=== PATIENT | female | born 1995 | race Caucasian/White ===

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

== ENCOUNTER 2017-03-07 13:35 | Emergency (ER) | payer OTHER ==
[2017-03-07 13:56] VITALS: BMI 23.0
[2017-03-07] MEDS ORDERED: SODIUM CHLORIDE 1,000 ML IV STA (14:20)
[2017-03-07] MEDS ORDERED: FAMOTIDINE 20 MG/50 ML IVPB 50 ML IVPB ONE ×2 (14:20→14:34)
[2017-03-07 14:35] LABS: BASOPHIL 0.5 % (0-2.0); EOSINOPHIL 1.2 % (0-4.5); MCH 31.2 pg (25.7-33.7); MCHC 34.5 g/dl (32.0-36.0); MEAN CELL VOLUME 90.5 fl (80-96); MEAN PLT VOLUME 7.7 fl (7.5-11.1); NEUTROPHILS 75.3 % (42.8-82.8); PLATELET COUNT 172 K/MM3 (134-434); RDW 14.5 % (11.6-15.6); WHITE BLOOD COUNT 10.3 K/mm3 (4.0-10.0)
[2017-03-07 14:47] LABS: URINE APPEARANCE CLEAR; URINE BILIRUBIN NEGATIVE (NEGATIVE); URINE BLOOD NEGATIVE (NEGATIVE); URINE COLOR STRAW; URINE GLUCOSE (UA) NEGATIVE (NEGATIVE); URINE KETONE NEGATIVE (NEGATIVE); URINE LEUK ESTERASE NEGATIVE (NEGATIVE); URINE NITRITE NEGATIVE (NEGATIVE); URINE PROTEIN NEGATIVE (NEGATIVE); URINE UROBILINOGEN NEGATIVE mg/dL (0.2-1.0)
[2017-03-07 14:54] LABS: ALBUMIN 3.5 g/dl (3.4-5.0); ANION GAP 8 (8-16); BILIRUBIN,TOTAL 0.2 mg/dL (0.2-1.0); CO2 25 mmol/L (21-32); CREATININE 0.6 mg/dL (0.55-1.02); GLUCOSE,RANDOM 87 mg/dL (74-106); SGOT/AST 17 U/L (15-37); SGPT/ALT 23 U/L (12-78); TOT PROT 7.1 g/dl (6.4-8.2)
[2017-03-07 14:59] LABS: ALK PHOS 54 U/L (45-117)
--- NOTE | 2017-03-07 15:53 | PDOC ---
History of Present Illness - General History Source: Patient Exam Limitations: No Limitations <Henrik London - Last Filed: 03/07/17 16:26> - General History Source: Patient Exam Limitations: No Limitations - History of Present Illness Initial Comments: 03/07/17 16:46 21-year-old female with no past medical history, , approximately 7 weeks presents with generalized abdominal pain since she was . Patient reports that she be feeling this discomfort throughout her whole abdomen since she was . Patient denies any nausea, vomiting, diarrhea, vaginal bleeding. Denies dysuria. Patient wanted to get checked and came into the ED. <Jory Kruse - Last Filed: 03/07/17 16:47> - General Chief Complaint: Pain Stated Complaint: ABD PAIN (5 WKS ) Time Seen by Provider: 03/07/17 14:02 Past History - Past Medical History Other medical history: NONE - Surgical History Abdominal Surgery: Yes Appendectomy: Yes - Reproductive History Is Patient Now?: Yes (#): 1 Para: 0 Cervical CA: No Dysfunctional Uterine Bleeding: No Ectopic : No Endometrial CA: No Polycystic Ovaries: No Therapeutic (s) & number: No Tubal Ligation: No - Immunization History Immunization Up to Date: Yes - Psycho/Social/Smoking Cessation Hx Anxiety: No Suicidal Ideation: No Smoking Status: No Smoking History: Never smoked Number of Cigarettes Smoked Daily: 0 Cigars Per Day: 0 Hx Alcohol Use: No Drug/Substance Use Hx: No Substance Use Type: None <Henrik London - Last Filed: 03/07/17 16:26> <Jory Kruse - Last Filed: 03/07/17 16:47> - Past Medical History Allergies/Adverse Reactions: Allergies Allergy/AdvReac Type Severity Reaction Status Date / Time No Known Allergies Allergy Verified 03/07/17 13:56 Home Medications: Ambulatory Orders Famotidine [Pepcid] 20 mg PO BID #14 tablet 03/07/17 Vits #93/Iron Fum/FA [ Formula Tablet] 1 each PO DAILY Review of Systems - Review of Systems Able to Perform ROS?: Yes Comments:: 03/07/17 16:46 GENERAL/CONSTITUTIONAL: No fever or chills. No weakness. HEAD, EYES, EARS, NOSE AND THROAT: No change in vision. No ear pain or discharge. No sore throat. CARDIOVASCULAR: No chest pain or shortness of breath. RESPIRATORY: No cough, wheezing, or hemoptysis. GASTROINTESTINAL: +Generalized abdominal pain. No nausea, vomiting, diarrhea or constipation. GENITOURINARY: No dysuria, frequency, or change in urination. MUSCULOSKELETAL: No joint or muscle swelling or pain. No neck or back pain. SKIN: No rash NEUROLOGIC: No headache, vertigo, loss of consciousness, or change in strength/ sensation. ENDOCRINE: No increased thirst. No abnormal weight change. HEMATOLOGIC/LYMPHATIC: No anemia, easy bleeding, or history of blood clots. ALLERGIC/IMMUNOLOGIC: No hives or skin allergy. <Jory Kruse - Last Filed: 03/07/17 16:47> *Physical Exam - Vital Signs Last Vital Signs Temp Pulse Resp BP Pulse Ox 98.3 F 73 20 93/52 98 03/07/17 13:52 03/07/17 13:52 03/07/17 13:52 03/07/17 13:52 03/07/17 13:52 <Henrik London - Last Filed: 03/07/17 16:26> - Vital Signs Last Vital Signs Temp Pulse Resp BP Pulse Ox 98.3 F 73 20 93/52 98 03/07/17 13:52 03/07/17 13:52 03/07/17 13:52 03/07/17 13:52 03/07/17 13:52 - Physical Exam Comments: 03/07/17 16:46 GENERAL: Awake, alert, and fully oriented, in no acute distress HEAD: No signs of trauma EYES: PERRLA, EOMI, sclera anicteric, conjunctiva clear ENT: Auricles normal inspection, hearing grossly normal, nares patent, oropharynx clear without exudates. Moist mucosa NECK: Normal ROM, supple, no lymphadenopathy, JVD, or masses LUNGS: Breath sounds equal, clear to auscultation bilaterally. No wheezes, and no crackles HEART: Regular rate and rhythm, normal S1 and S2, no murmurs, rubs or gallops ABDOMEN: Soft, nontender, normoactive bowel sounds. No guarding, no rebound. No masses EXTREMITIES: Normal range of motion, no edema. No clubbing or cyanosis. No cords, erythema, or tendernessw NEUROLOGICAL: Cranial nerves II through XII grossly intact. Normal speech, normal gait SKIN: Warm, Dry, normal turgor, no rashes or lesions noted. <Jory Kruse - Last Filed: 03/07/17 16:47> ED Treatment Course - LABORATORY CBC & Chemistry Diagram: 03/07/17 14:12 03/07/17 14:12 - ADDITIONAL ORDERS Additional order review: Laboratory Results 03/07/17 03/07/17 03/07/17 14:12 14:12 14:12 Sodium 136 Potassium 3.9 Chloride 103 Carbon Dioxide 25 Anion Gap 8 BUN 11 Creatinine 0.6 D Creat Clearance w eGFR > 60 Random Glucose 87 Calcium 9.0 Total Bilirubin 0.2 D AST 17 D ALT 23 Alkaline Phosphatase 54 Total Protein 7.1 Albumin 3.5 Lipase 137 Beta HCG, Quant 50213.7 Urine Color Straw Urine Appearance Clear Urine pH 6.0 Urine Protein Negative Urine Glucose (UA) Negative Urine Ketones Negative Urine Blood Negative Urine Nitrite Negative Urine Bilirubin Negative Urine Urobilinogen Negative Ur Leukocyte Esterase Negative Blood Type O POSITIVE Antibody Screen Negative 03/07/17 14:12 RBC 4.13 MCV 90.5 MCHC 34.5 RDW 14.5 MPV 7.7 Neutrophils % 75.3 Lymphocytes % 14.6 D Monocytes % 8.4 Eosinophils % 1.2 D Basophils % 0.5 - RADIOLOGY Radiology Studies Ordered: Category Date Time Status <14WKS US [US] Stat Ultrasound 03/07/17 14:20 Completed - Medications Given in the ED: ED Medications Discontinued Medications Generic Name Dose Route Start Last Admin Trade Name Nicolette PRN Reason Stop Dose Admin Famotidine/Sodium Chloride 50 mls @ 100 mls/hr 03/07/17 14:20 03/07/17 14:40 Pepcid 20 Mg Premixed Ivpb - IVPB 03/07/17 14:49 100 mls/hr ONCE ONE Administration Sodium Chloride 1,000 mls @ 1,000 mls/hr 03/07/17 14:20 03/07/17 14:39 Normal Saline - IV 03/07/17 15:19 1,000 mls/hr ASDIR STA Administration <Henrik London - Last Filed: 03/07/17 16:26> - LABORATORY CBC & Chemistry Diagram: 03/07/17 14:12 03/07/17 14:12 - ADDITIONAL ORDERS Additional order review: Laboratory Results 03/07/17 03/07/17 03/07/17 14:12 14:12 14:12 Sodium 136 Potassium 3.9 Chloride 103 Carbon Dioxide 25 Anion Gap 8 BUN 11 Creatinine 0.6 D Creat Clearance w eGFR > 60 Random Glucose 87 Calcium 9.0 Total Bilirubin 0.2 D AST 17 D ALT 23 Alkaline Phosphatase 54 Total Protein 7.1 Albumin 3.5 Lipase 137 Beta HCG, Quant 09232.7 Urine Color Straw Urine Appearance Clear Urine pH 6.0 Urine Protein Negative Urine Glucose (UA) Negative Urine Ketones Negative Urine Blood Negative Urine Nitrite Negative Urine Bilirubin Negative Urine Urobilinogen Negative Ur Leukocyte Esterase Negative Blood Type O POSITIVE Antibody Screen Negative 03/07/17 14:12 RBC 4.13 MCV 90.5 MCHC 34.5 RDW 14.5 MPV 7.7 Neutrophils % 75.3 Lymphocytes % 14.6 D Monocytes % 8.4 Eosinophils % 1.2 D Basophils % 0.5 - Medications Given in the ED: ED Medications Discontinued Medications Generic Name Dose Route Start Last Admin Trade Name Nicolette PRN Reason Stop Dose Admin Famotidine/Sodium Chloride 50 mls @ 100 mls/hr 03/07/17 14:20 03/07/17 14:40 Pepcid 20 Mg Premixed Ivpb - IVPB 03/07/17 14:49 100 mls/hr ONCE ONE Administration Sodium Chloride 1,000 mls @ 1,000 mls/hr 03/07/17 14:20 03/07/17 14:39 Normal Saline - IV 03/07/17 15:19 1,000 mls/hr ASDIR STA Administration <Jory Kruse - Last Filed: 03/07/17 16:47> Medical Decision Making - Medical Decision Making 03/07/17 15:46 A portion of this note was documented by scribe services under my direction. I have reviewed the details of the note, within reason, and agree with the documentation with the following case summary and management plan written by me. Patient treated in the ED. Nursing notes are reviewed and incorporated into the medical decision-making. Vital signs reviewed. Peripheral IV access obtained by the nurse, laboratory studies are drawn and sent, reviewed and interpreted by myself. Vital Signs Temp Pulse Resp BP Pulse Ox 98.3 F 73 20 93/52 98 03/07/17 13:52 03/07/17 13:52 03/07/17 13:52 03/07/17 13:52 03/07/17 13:52 21-year-old female with no past medical history, , approximately 7 weeks presents with generalized abdominal pain since she was . Patient reports that she be feeling this discomfort throughout her whole abdomen since she was . Patient denies any nausea, vomiting, diarrhea, vaginal bleeding. Denies dysuria. Patient wanted to get checked and came into the ED. I do not suspect or miscarriage at this time. I suspect the patient is likely more concerned and anxious about her than acute pathology at this time. Patient's ultrasound was checked and demonstrates a normal intrauterine and her blood work was checked for other acute abdominal pathology which demonstrates no acute symptoms. We'll give reassurance have patient follow up with her doctor. CBC, BMP 03/07/17 14:12 03/07/17 14:12 CMP Sodium 136 mmol/L (136-145) 03/07/17 14:12 Potassium 3.9 mmol/L (3.5-5.1) 03/07/17 14:12 Chloride 103 mmol/L (98-107) 03/07/17 14:12 Carbon Dioxide 25 mmol/L (21-32) 03/07/17 14:12 Anion Gap 8 (8-16) 03/07/17 14:12 BUN 11 mg/dL (7-18) 03/07/17 14:12 Creatinine 0.6 mg/dL (0.55-1.02) D 03/07/17 14:12 Creat Clearance w eGFR > 60 (>60) 03/07/17 14:12 Random Glucose 87 mg/dL (74-106) 03/07/17 14:12 Calcium 9.0 mg/dL (8.5-10.1) 03/07/17 14:12 Total Bilirubin 0.2 mg/dL (0.2-1.0) D 03/07/17 14:12 AST 17 U/L (15-37) D 03/07/17 14:12 ALT 23 U/L (12-78) 03/07/17 14:12 Alkaline Phosphatase 54 U/L (45-117) 03/07/17 14:12 Total Protein 7.1 g/dl (6.4-8.2) 03/07/17 14:12 Albumin 3.5 g/dl (3.4-5.0) 03/07/17 14:12 Lipase 137 U/L (73-393) 03/07/17 14:12 Beta HCG, Quant 11822.7 mIU/ml 03/07/17 14:12 Urine Test Results Urine Color Straw 03/07/17 14:12 Urine Appearance Clear 03/07/17 14:12 Urine pH 6.0 (5.0-8.0) 03/07/17 14:12 Urine Protein Negative (NEGATIVE) 03/07/17 14:12 Urine Glucose (UA) Negative (NEGATIVE) 03/07/17 14:12 Urine Ketones Negative (NEGATIVE) 03/07/17 14:12 Urine Blood Negative (NEGATIVE) 03/07/17 14:12 Urine Nitrite Negative (NEGATIVE) 03/07/17 14:12 Urine Bilirubin Negative (NEGATIVE) 03/07/17 14:12 Ur Leukocyte Esterase Negative (NEGATIVE) 03/07/17 14:12 I discussed the physical exam findings, ancillary test results and final diagnoses with the patient. I answered all of the patient's questions. The patient was satisfied with the care received and felt comfortable with the discharge plan and treatment plan. The patient will call their primary care physician within 24 hours to arrange follow-up and will return to the Emergency Department with any new, persistant or worsening symptoms. <Henrik London - Last Filed: 03/07/17 16:26> *DC/Admit/Observation/Transfer - Discharge Dispostion Admit: No <Henrik London - Last Filed: 03/07/17 16:26> - Attestations Scribe Attestion: 03/07/17 16:47 Documentation prepared by Jory Kruse, acting as medical representative for Henrik London MD <Jory Kruse - Last Filed: 03/07/17 16:47> Diagnosis at time of Disposition: Qualifiers: Weeks of gestation: 8 weeks Qualified Code(s): Z3A.08 - 8 weeks gestation of - Prescriptions Prescriptions: Famotidine [Pepcid] 20 mg PO BID #14 tablet - Referrals Referrals: Alley Carbajal [Primary Care Provider] - - Patient Instructions Printed Discharge Instructions: DI for Gastroesophageal Reflux Disease (GERD) Additional Instructions: Please follow up with your doctor. Drink plenty of fluids and rest. Take 650 mg tylenol every 4 hours as needed for pain. If you hvae acid reflux, take 20 mg pepcid every 12 hours as needed. Follow up with your leasing representative doctor.
[2017-03-07 16:57] VITALS: BP 114/71; PULSE 79; TEMP 98.1
== END 2017-03-07 16:55 | disposition home or self-care (01) ==
LOC: JER 13:35
PROC: 3E033GC Introduction of Other Therapeutic Substance into Peripheral Vein, Percutaneous Approach (ICD-10-PCS; principal; 2017-03-07)
DX: O26.891 Other specified pregnancy related conditions, first trimester (principal); R10.30 Lower abdominal pain, unspecified; Z3A.08 8 weeks gestation of pregnancy
CPT/HCPCS: 36415; 76801-TC; 80053; 81003; 83690; 84702; 85025; 86850; 86900; 86901; 87086; 96365; 99284-25

== ENCOUNTER 2017-09-20 23:50 | Inpatient (IN) | payer OTHER ==
[2017-09-21] MEDS ORDERED: DEXTROSE 5%-LACTATED RINGERS 1,000 ML IV SCH (00:30)
[2017-09-21] MEDS ORDERED: AMPICILLIN SODIUM 2 GM VIAL ONE (00:33)
[2017-09-21] MEDS ORDERED: AMPICILLIN - 2 GM in SODIUM CHLORIDE 100 ML IVPB ONE (00:35)
[2017-09-21] MEDS ORDERED: BUTORPHANOL TARTRATE 1 MG/ML VIAL IVPUSH ONE (00:45)
[2017-09-21] MEDS ORDERED: PROMETHAZINE HCL 25 MG/1 ML VIAL IVPUSH ONE (00:45)
[2017-09-21] MEDS ORDERED: BUTORPHANOL TARTRATE 1 MG/ML VIAL ONE ×2 (00:48)
[2017-09-21] MEDS ORDERED: PROMETHAZINE HCL 25 MG/1 ML VIAL ONE (00:48)
[2017-09-21 00:54] LABS: BASO % 0.2 % (0-2.0); EOS % 1.1 % (0-4.5); HEMATOCRIT 30.4 % (32.4-45.2); LYMPH % 12.2 % (8-40); MCH 26.6 pg (25.7-33.7); MCHC 32.7 g/dl (32.0-36.0); MEAN CELL VOLUME 81.5 fl (80-96); MEAN PLT VOLUME 8.6 fl (7.5-11.1); MONO % 6.8 % (3.8-10.2); NEUT % 79.7 % (42.8-82.8); PLATELET COUNT 182 K/MM3 (134-434); RBC 3.73 M/mm3 (3.60-5.2); RDW 15.2 % (11.6-15.6); WHITE BLOOD COUNT 10.8 K/mm3 (4.0-10.0)
[2017-09-21 01:10] LABS: INR 0.97 (0.82-1.09)
[2017-09-21 01:12] LABS: ACTIVATED PTT 26.7 SECONDS (26.9-34.4)
[2017-09-21 01:22] LABS: ANION GAP 12 (8-16); BLOOD UREA NITROGEN 9 mg/dL (7-18); CALCIUM 8.8 mg/dL (8.5-10.1); CHLORIDE 104 mmol/L (98-107); CO2 21 mmol/L (21-32); CREATININE 0.5 mg/dL (0.55-1.02); GLUCOSE,RANDOM 136 mg/dL (74-106); POTASSIUM 3.7 mmol/L (3.5-5.1); SODIUM 137 mmol/L (136-145)
[2017-09-21 02:11] VITALS: BMI 28.3
[2017-09-21] MEDS ORDERED: AMPICILLIN SODIUM 1 GM VIAL ONE ×3 (04:29→15:43)
[2017-09-21] MEDS: AMPICILLIN - 1 GM in SODIUM CHLORIDE 100 ML IVPB SCH ×5 (04:35→22:58)
[2017-09-21] MEDS: ELECTROLYTE-148 SOLN 1,000 ML IV SCH ×2 (04:45→11:57)
[2017-09-21] MEDS ORDERED: FENTANYL/BUPIVACAINE/NS/PF - PCEA - 50 ML DISP.SYRIN EP ONE ×3 (04:52→15:05)
[2017-09-21] MEDS ORDERED: NALOXONE HCL 0.4 MG/ML VIAL IVPUSH PRN (04:55)
[2017-09-21] MEDS: FENTANYL/BUPIVACAINE/NS/PF - PCEA - 50 ML DISP.SYRIN EP SCH (05:15)
--- NOTE | 2017-09-21 07:13 | HP ---
Past Medical History - Primary Care Physician PCP:: Fabiana Heller - Admission Chief Complaint: labor History of Present Illness: 22 yo EDC 10/21 EGA 35.3 week admitted due to labor no rom no bleeding no TLOEDO GBS neg +anemia +asthma - Past Medical History Pulmonary: Yes: Asthma ...: 1 ...Para: 0 ...Term: 0 ...: 0 ...Spon : 0 ...Induced : 0 ...Multiple Gestation: 0 ...EDC by Sono: 10/21/17 Heme/Onc: Yes: Anemia - Past Surgical History Past Surgical History: Yes: Appendectomy Hx Myomectomy: No Hx Transabdominal Cerclage: No - Smoking History Smoking history: Never smoked Have you smoked in the past 12 months: No Aproximately how many cigarettes per day: 0 - Alcohol/Substance Use Hx Alcohol Use: No History of Substance Use: reports: None - Social History History of Recent Travel: No Home Medications - Allergies Allergies/Adverse Reactions: Allergies Allergy/AdvReac Type Severity Reaction Status Date / Time No Known Allergies Allergy Verified 03/07/17 13:56 - Home Medications Home Medications: Ambulatory Orders Albuterol Sulfate Inhaler - 1 - 2 puff PO PRN PRN 09/21/17 Pnv 112/Iron/Folic/Om3/Dha/Epa [Vitafol Gummies] 2 tablet PO DAILY 09/21/17 Physical Exam - Maternity Vital Signs: Vital Signs Temperature 98.0 F 09/21/17 06:00 Pulse Rate 82 09/21/17 06:15 Respiratory Rate 18 09/21/17 06:15 Blood Pressure 103/66 09/21/17 06:15 O2 Sat by Pulse Oximetry (%) 98 09/21/17 06:15 Constitutional: Yes: Well Nourished, No Distress Neck: Yes: WNL Cardiovascular: Yes: WNL, Regular Rate and Rhythm Lungs: Clear to auscultation Breast(s): Yes: WNL - Abdominal Exam/OB Fundal Height: 35 Number of Fetuses: Single Presentation: Vertex Contractions: Yes Regularity: Regular Intensity: Moderate Category: I Accelerations: Non-Uniform Decelerations: None - Vaginal Exam/OB Dilatation (cm): 5 Effacement (%): 70 Amniotic Membrane Status: Bulging Presentation: Vertex/Position Station: -1 - Physical Exam Musculoskeletal: Yes: WNL Extremities: Yes: WNL Edema: No - Labs Lab Results: CBC, BMP 09/21/17 00:30 09/21/17 00:30 Hemorrhage Risk Assessment - Risk Factors Risk Score: 1 Risk Level: Medium Risk Problem List - Problems (1) labor in third trimester without delivery Code(s): O60.03 - LABOR WITHOUT DELIVERY, THIRD TRIMESTER Assessment/Plan IUP at 35.3 week labor GBS neg S/P epidural Plan amp due to
[2017-09-21] MEDS ORDERED: TUBERCULIN PPD 5 TU/0.1ML SYRINGE (IN PATIENT USE ONLY) ID ONE (09:00)
[2017-09-21] MEDS ORDERED: ELECTROLYTE-148 SOLN 1,000 ML IV SCH (09:30)
--- NOTE | 2017-09-21 14:48 | PN ---
Progress Note (short form) - Note Progress Note: 22 yo @ 35 weeks gestation, EDC 10/21/17 admitted for labor pain. Patient seen and evaluated, she's lying comfortably in bed; status post epidural anesthesia. FHR : occasional late decelerations [place] : + contractions VE : 6/90% / -1 AROM ( clear ) Internal monitor placed A/P : Active labor Continue close monitoring Anticipate
[2017-09-21] MEDS ORDERED: ACETAMINOPHEN 325 MG TABLET (FP) ONE (15:05)
[2017-09-21] MEDS ORDERED: ACETAMINOPHEN 325 MG TABLET (FP) PO ONE (15:15)
[2017-09-21] MEDS ORDERED: OXYTOCIN 20 UNITS in 0.9% NS 20 UNIT/1,000 ML INFUS.BAG IV ONE (15:41)
[2017-09-21] MEDS ORDERED: LIDOCAINE HCL 1% PRESERVATIVE FREE - 30ML VIAL ONE (17:41)
[2017-09-21] MEDS ORDERED: BENZOCAINE 28 GM HEMORRHOIDAL OINTMENT TP PRN (18:04)
[2017-09-21] MEDS ORDERED: IBUPROFEN 600 MG TABLET (FP) PO PRN (18:04)
[2017-09-21] MEDS ORDERED: ACETAMINOPHEN 325 MG TABLET (FP) PO PRN (18:04)
[2017-09-21] MEDS ORDERED: WITCH HAZEL 50% (TUCKS) 40 PAD/JAR PAD TP PRN (18:04)
[2017-09-21] MEDS ORDERED: METHYLERGONOVINE MALEATE 0.2 MG/1 ML AMP IM PRN (18:04)
[2017-09-21] MEDS ORDERED: BISACODYL 10 MG SUPP.RECT RC PRN (18:04)
--- NOTE | 2017-09-21 18:09 | PN ---
Delivery - Delivery Vaginal Delivery: Spontaneous Type of Anesthesia: Epidural Episiotomy/Laceration: Midline EBL (cc): 300 Delivery, Single - Feeding Plan Initial Plan: Exclusive throughout hospitalization Remarks - Remarks Remarks: Normal spontaneous vaginal delivery of a over midline episiotomy. Nose / Oropharynx suctioned @ perineum. Nuchal cord x 1 clamped and cut. Placenta expelled spontaneously intact. Midline episiotomy repaired with 2.0 Chromic.
[2017-09-21] MEDS ORDERED: OXYTOCIN 20 UNITS in 0.9% NS 20 UNIT/1,000 ML INFUS.BAG IV SCH (18:15)
[2017-09-22] MEDS: AMPICILLIN - 1 GM in SODIUM CHLORIDE 100 ML IVPB SCH (00:35)
[2017-09-22 07:13] LABS: BASO % 0.2 % (0-2.0); EOS % 0.3 % (0-4.5); HEMATOCRIT 26.6 % (32.4-45.2); HEMOGLOBIN 8.6 GM/dL (10.7-15.3); LYMPH % 9.3 % (8-40); MCH 26.1 pg (25.7-33.7); MCHC 32.3 g/dl (32.0-36.0); MEAN CELL VOLUME 80.8 fl (80-96); MEAN PLT VOLUME 8.5 fl (7.5-11.1); MONO % 6.8 % (3.8-10.2); NEUT % 83.4 % (42.8-82.8); PLATELET COUNT 161 K/MM3 (134-434); RBC 3.29 M/mm3 (3.60-5.2); RDW 15.3 % (11.6-15.6); WHITE BLOOD COUNT 14.6 K/mm3 (4.0-10.0)
[2017-09-22] MEDS: FERROUS SO4 325 MG TABLET (FP) PO SCH ×3 (09:46→18:58)
[2017-09-22] MEDS: PRENATAL VITAMINS W/ FOLIC ACID TABLET (FP) PO SCH (09:46)
[2017-09-22] MEDS: BENZOCAINE 20% 57 GM BOTTLE TP PRN (09:53)
[2017-09-22] MEDS ORDERED: SENNOSIDES/DOCUSATE COMBO (SENNA PLUS) TABLET (UD) PO PRN (22:00)
--- NOTE | 2017-09-23 07:00 | PN ---
Post Note - Post Date of Delivery: 09/21/17 Post Day: 2 Vital Signs: Vital Signs - 24 hr 09/22/17 09/22/17 09/22/17 09:00 13:00 22:00 Temperature 99.4 F 98.7 F 97.9 F Pulse Rate 100 H 73 87 Respiratory 20 20 20 Rate Blood Pressure 107/65 116/76 114/74 Labs: Laboratory Results - last 24 hr 09/22/17 06:44 WBC 14.6 H D RBC 3.29 L Hgb 8.6 L D Hct 26.6 L MCV 80.8 MCH 26.1 MCHC 32.3 RDW 15.3 Plt Count 161 MPV 8.5 Neutrophils % 83.4 H Lymphocytes % 9.3 D Monocytes % 6.8 Eosinophils % 0.3 Basophils % 0.2 - Subjective Subjective: No Complaints - Objective Breast: Not engorged Abdomen: Soft, Non-tender Uterus: Fundus firm, Non-tender Vagina: Scant lochia Extremities: Non-tender - Assessment/Plan (1) labor in third trimester without delivery Assessment: S/P Normal , Other (anemia) Plan: Routine Care, Other (iron BID motrin)
--- NOTE | 2017-09-23 07:02 | DS ---
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[employer] Vital Signs: Vital Signs Temperature 97.9 F 09/22/17 22:00 Pulse Rate 87 09/22/17 22:00 Respiratory Rate 20 09/22/17 22:00 Blood Pressure 114/74 09/22/17 22:00 O2 Sat by Pulse Oximetry (%) 100 09/21/17 18:45 Constitutional: Yes: Well Nourished, No Distress ....Post : Yes: Uterus firm, Uterus non-tender Breast(s): Yes: WNL Musculoskeletal: Yes: WNL Edema: No Labs: CBC, BMP 09/22/17 06:44 09/21/17 00:30 Delivery - Delivery Vaginal Delivery: Spontaneous Type of Anesthesia: Local, Epidural Episiotomy/Laceration: Midline EBL (cc): 300 Delivery, Single - Stages of Labor Date 1st Stage Initiatied: 09/20/17 Time 1st Stage Initiated: 22:30 Date 2nd Stage Initiated: 09/21/17 Time 2nd Stage Initiated: 17:30 Date of Delivery: 09/21/17 Time of Delivery: 17:44 Time Placenta Delivered: 17:46 - Condition of 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 Present: Yes Name: Alexandr Perez Infant Gender: Male Weight: 5 lb 15 oz Position: Left, OT Total Hours ROM (Hrs/Mins): 3hrs 11min - 1 Minute Total Score: 6 5 Minutes Total Score: 8 - Feeding Plan Initial Plan: Exclusive throughout hospitalization Discharge Summary Reason For Visit: LABOR ADMIT Current Active Problems labor in third trimester without delivery (Acute) Procedures: Principal: normal vaginal delivery Condition: Good - Instructions Diet, Activity, Other Instructions: Physical activity Resume your normal everyday activity as tolerated no heavy lifting or exercise until seen by your surgeon. You may walk unlimited divya of and climb stairs. You may resume driving the car when you feel safe and comfortable behind the wheel. No sexual activity as instructed. Wound care If you have a bandage, leave it on, and keep dry for 48-72 hours. After that time discard the outer bandage. If they are tapes on the skin under the out of bandage leave them in place. They will peel off in the next 7 to 10 days. Do Not Peel them off. You may shower the day after surgery. If there are tapes present on the skin, you may shower over them. Diet There are no dietary restrictions. Eat healthy, high-fiber foods. Drink 6 to 8 glasses of liquid each day. This will assist in keeping your bowels are regular. Pain management You may take Tylenol or acetaminophen or Ibuprofen (for example, Motrin, Advil etc.) from my pain prescription medication is ordered should be taken as prescribed for moderate to severe pain. Call MD for any of the following: Severe pain not relieved by medication Fever of 101 or higher Excessive bleeding or drainage on dressing Inability to urinate Disposition: HOME - Home Medications Comprehensive Discharge Medication List: Ambulatory Orders Albuterol Sulfate Inhaler - 1 - 2 puff PO PRN PRN 09/21/17 Pnv 112/Iron/Folic/Om3/Dha/Epa [Vitafol Gummies] 2 tablet PO DAILY 09/21/17
[2017-09-23] MEDS: FENTANYL/BUPIVACAINE/NS/PF - PCEA - 50 ML DISP.SYRIN EP SCH (07:38)
[2017-09-23] MEDS: BENZOCAINE 20% 57 GM BOTTLE TP PRN (08:16)
[2017-09-23] MEDS: FERROUS SO4 325 MG TABLET (FP) PO SCH ×2 (08:17→12:25)
[2017-09-23 09:15] VITALS: BP 123/73; PULSE 84; TEMP 98.8
[2017-09-23] MEDS: PRENATAL VITAMINS W/ FOLIC ACID TABLET (FP) PO SCH (10:18)
== END 2017-09-23 12:50 | disposition home or self-care (01) | DRG 560 ==
LOC: JDEL 23:50 → JLDR 09-21 00:28 → J3W 09-21 20:47
PROVIDERS: ADMIT Obstetrics & Gynecology; ATTEND Obstetrics & Gynecology
PROC: 0W8NXZZ Division of Female Perineum, External Approach (ICD-10-PCS; principal; 2017-09-21)
PROC: 10E0XZZ Delivery of Products of Conception, External Approach (ICD-10-PCS; 2017-09-21)
PROC: 10907ZC Drainage of Amniotic Fluid, Therapeutic from Products of Conception, Via Natural or Artificial Opening (ICD-10-PCS; 2017-09-21)
DX: O60.23X1 Term delivery with preterm labor, third trimester, fetus 1 (principal); O99.02 Anemia complicating childbirth; O69.81X0 Labor and delivery complicated by cord around neck, without compression, not applicable or unspecified; Z3A.35 35 weeks gestation of pregnancy; Z37.0 Single live birth
CPT/HCPCS: 36415; 59409; 80048; 85025; 85610; 85730; 86593; 86850; 86900; 86901

== ENCOUNTER 2018-05-06 12:32 | Day surgery (SDC) | payer OTHER ==
[2018-05-05 08:42] VITALS: BMI 24.7
[2018-05-06] MEDS ORDERED: PROPOFOL 20 ML ONE ×2 (14:07→14:50)
[2018-05-06] MEDS ORDERED: MIDAZOLAM HCL 2 MG/2 ML SINGLE DOSE VIAL ONE (14:07)
[2018-05-06] MEDS ORDERED: KETOROLAC TROMETHAMINE 30 MG/1 ML VIAL ONE (14:07)
--- NOTE | 2018-05-06 14:58 | HP ---
Admitting History and Physical - Admission Chief Complaint: Abnormal History of Present Illness: 22 yo with early gestation, diagnosed with blighted ovum, is pre op for suction D&C. History Source: Patient Limitations to Obtaining History: No Limitations - Past Medical History Pulmonary: Yes: Asthma ...LMP: 03/03/18 ...: Yes ...: 2 ...Para: 1 Heme/Onc: Yes: Anemia - Past Surgical History Past Surgical History: Yes: Appendectomy - Smoking History Smoking history: Never smoked Have you smoked in the past 12 months: No Aproximately how many cigarettes per day: 0 - Alcohol/Substance Use Hx Alcohol Use: No History of Substance Use: reports: None - Social History Usual Living Arrangement: Yes: With Significant Other History of Recent Travel: No Home Medications - Allergies Allergies/Adverse Reactions: Allergies Allergy/AdvReac Type Severity Reaction Status Date / Time No Known Allergies Allergy Verified 05/06/18 13:26 - Home Medications Home Medications: Ambulatory Orders Albuterol Sulfate Inhaler - 1 - 2 puff PO PRN PRN 09/21/17 Family Disease History - Family Disease History Family History: Unremarkable Review of Systems - Review of Systems Constitutional: reports: No Symptoms Eyes: reports: No Symptoms HENT: reports: No Symptoms Neck: reports: No Symptoms Cardiovascular: reports: No Symptoms Respiratory: reports: No Symptoms Gastrointestinal: reports: No Symptoms Genitourinary: reports: No Symptoms Breasts: reports: No Symptoms Reported Musculoskeletal: reports: No Symptoms Integumentary: reports: No Symptoms Neurological: reports: No Symptoms Endocrine: reports: No Symptoms Hematology/Lymphatic: reports: No Symptoms Psychiatric: reports: No Symptoms Pain Intensity: 0 Physical Examination Vital Signs: Vital Signs Temperature 98.2 F 05/06/18 13:15 Pulse Rate 81 05/06/18 13:15 Respiratory Rate 18 05/06/18 13:15 Blood Pressure 101/54 L 05/06/18 13:15 O2 Sat by Pulse Oximetry (%) 99 05/06/18 13:17 Constitutional: Yes: Well Nourished Eyes: Yes: Conjunctiva Clear HENT: Yes: Atraumatic Neck: Yes: Supple Cardiovascular: Yes: Regular Rate and Rhythm Respiratory: Yes: Regular Gastrointestinal: Yes: Normal Bowel Sounds Breast(s): Yes: WNL Musculoskeletal: Yes: WNL Neurological: Yes: Alert, Oriented ...Motor Strength: WNL Psychiatric: Yes: Alert, Oriented Problem List - Problems (1) Blighted ovum Code(s): O02.0 - BLIGHTED OVUM AND NONHYDATIDIFORM MOLE Assessment/Plan Blighted ovum Pre op for suction D&C Consent signed Anesthesia to see patient
--- NOTE | 2018-05-06 15:03 | OP ---
Operative Note - Note: Operative Date: 05/06/18 Pre-Operative Diagnosis: Blighted ovum Operation: Suction D&C Post-Operative Diagnosis: Same as Pre-op Surgeon: Fabiana Heller Anesthesia: General Specimens Removed: Product of conception Estimated Blood Loss (mls): 20 Operative Report Dictated: Yes
[2018-05-06] MEDS ORDERED: ONDANSETRON 4 MG/2 ML VIAL IVPUSH PRN (15:04)
[2018-05-06] MEDS ORDERED: ACETAMINOPHEN 325 MG TABLET (FP) PO PRN (15:04)
[2018-05-06] MEDS ORDERED: oxyCODONE HCL 5 MG TABLET PO PRN (15:04)
[2018-05-06] MEDS ORDERED: LACTATED RINGERS SOLUTION 1,000 ML IV SCH (15:15)
--- NOTE | 2018-05-06 15:43 | OP ---
DATE OF OPERATION: 05/06/2018 PREOPERATIVE DIAGNOSIS: Blighted ovum. POSTOPERATIVE DIAGNOSIS: Blighted ovum. PROCEDURE: Suction dilatation and curettage. SURGEON: Fabiana Heller MD ANESTHESIA: General. COMPLICATIONS: None. ESTIMATED BLOOD LOSS: 20 mL DESCRIPTION OF PROCEDURE: Patient was taken to the operating room where general anesthesia was administered. Patient was then placed in lithotomy position. She was then prepped and draped in proper sterile fashion. A weighted speculum was placed in the vagina. The anterior lip of the cervix was grasped with a single-tooth tenaculum. The uterus was sounded. Then, the cervical os was sequentially dilated with La dilators. Then, a 10-mm suction curette was then gently introduced into the uterine cavity. The suction device was then activated, and the curette rotated to clear the uterus of all products of conception. A sharp curettage was then performed. Then, the suction curette was re-introduced to clear the uterus of all remaining products of conception. Patient tolerated the procedure well. Patient was then taken to PACU in stable condition. PATHOLOGY: Products of conception. Itzel [id number]
[2018-05-06 15:51] VITALS: TEMP 98.2
[2018-05-06 18:14] VITALS: BP 90/54; PULSE 80
== END 2018-05-06 17:10 | disposition home or self-care (01) ==
LOC: JASU-SURG 12:32
PROVIDERS: ATTEND Obstetrics & Gynecology
PROC: 10D07Z8 Extraction of Products of Conception, Other, Via Natural or Artificial Opening (ICD-10-PCS; principal; 2018-05-06 14:00)
DX: O02.0 Blighted ovum and nonhydatidiform mole (principal)
CPT/HCPCS: 86850; 86900; 86901; 88305-TC; 94760

== ENCOUNTER 2019-05-09 09:40 | Inpatient (IN) | payer OTHER ==
[2019-05-09] MEDS ORDERED: AMPICILLIN SODIUM 2 GM VIAL ONE ×2 (10:44→10:45)
[2019-05-09] MEDS ORDERED: AMPICILLIN - 2 GM in SODIUM CHLORIDE 100 ML IVPB ONE (11:00)
[2019-05-09 11:03] LABS: BASO % 0.2 % (0-2.0); EOS % 0.9 % (0-4.5); HEMATOCRIT 34.2 % (32.4-45.2); HEMOGLOBIN 11.5 GM/dL (10.7-15.3); LYMPH % 19.5 % (8-40); MCH 28.2 pg (25.7-33.7); MCHC 33.6 g/dl (32.0-36.0); MEAN CELL VOLUME 83.9 fl (80-96); MONO % 8.4 % (3.8-10.2); PLATELET COUNT 163 K/MM3 (134-434); RBC 4.08 M/mm3 (3.60-5.2); RDW 23.1 % (11.6-15.6); WHITE BLOOD COUNT 8.1 K/mm3 (4.0-10.0)
[2019-05-09 11:11] LABS: INR 1.02 (0.83-1.09)
[2019-05-09 11:13] LABS: ACTIVATED PTT 27.1 SECONDS (25.2-36.5)
[2019-05-09 11:33] LABS: BLOOD UREA NITROGEN 5.9 mg/dL (7-18); CALCIUM 8.7 mg/dL (8.5-10.1); CREATININE 0.5 mg/dL (0.55-1.3); POTASSIUM 3.8 mmol/L (3.5-5.1)
[2019-05-09] MEDS ORDERED: OXYTOCIN 20 UNITS in 0.9% NS 20 UNIT/1,000 ML INFUS.BAG IV ONE (11:34)
[2019-05-09 11:44] LABS: ANISOCYTOSIS 1+; MACROCYTOSIS 0; PLATELET ESTIMATE NORMAL
[2019-05-09 11:50] VITALS: BMI 29.2
[2019-05-09] MEDS ORDERED: PROMETHAZINE HCL 25 MG/1 ML VIAL IVPB ONE (11:56)
[2019-05-09] MEDS ORDERED: BUTORPHANOL TARTRATE 1 MG/ML VIAL IVPB ONE (11:56)
[2019-05-09] MEDS ORDERED: DEXTROSE 5%-LACTATED RINGERS 1,000 ML IV SCH (12:00)
--- NOTE | 2019-05-09 12:05 | HP ---
Past Medical History - Admission Chief Complaint: Rupture of membrane History of Present Illness: 23 yo @ 35 weeks gestation, EDC 06/09/19, admitted for spontaneous rupture of membrane. Upon admission cervix was closed with gross pooling. History Source: Patient Limitations to Obtaining History: No Limitations - Past Medical History Pulmonary: Yes: Asthma ...: 3 ...Para: 1 ...: 1 ...Spon : 1 ...EDC by Rory: 06/09/19 Heme/Onc: Yes: Anemia - Past Surgical History Past Surgical History: Yes: None, Appendectomy Hx Myomectomy: No Hx Transabdominal Cerclage: No - Smoking History Smoking history: Never smoked Have you smoked in the past 12 months: No Aproximately how many cigarettes per day: 0 - Alcohol/Substance Use Hx Alcohol Use: No History of Substance Use: reports: None - Social History Usual Living Arrangement: Yes: With Spouse History of Recent Travel: No Home Medications - Allergies Allergies/Adverse Reactions: Allergies Allergy/AdvReac Type Severity Reaction Status Date / Time No Known Allergies Allergy Verified 05/06/18 13:26 - Home Medications Home Medications: Ambulatory Orders Albuterol Sulfate Inhaler - 1 - 2 puff PO PRN PRN 09/21/17 Review of Systems - Review of Systems Constitutional: denies: Fever Eyes: reports: No Symptoms HENT: reports: No Symptoms Neck: reports: No Symptoms Cardiovascular: reports: No Symptoms Respiratory: reports: No Symptoms Gastrointestinal: reports: No Symptoms Genitourinary: reports: Other (Leakage of fluid) Breasts: reports: No Symptoms Reported Musculoskeletal: reports: No Symptoms Integumentary: reports: No Symptoms Neurological: reports: No Symptoms Endocrine: reports: No Symptoms Hematology/Lymphatic: reports: No Symptoms Psychiatric: reports: No Symptoms Pain Intensity: 9 Physical Exam - Maternity Vital Signs: Vital Signs Temperature 98.4 F 05/09/19 11:40 Pulse Rate 78 05/09/19 11:40 Respiratory Rate 18 05/09/19 11:40 Blood Pressure 127/78 05/09/19 11:40 O2 Sat by Pulse Oximetry (%) Constitutional: Yes: Well Nourished Eyes: Yes: Conjunctiva Clear HENT: Yes: Atraumatic Neck: Yes: Supple Cardiovascular: Yes: Regular Rate and Rhythm Lungs: Clear to auscultation Breast(s): Yes: WNL - Abdominal Exam/OB Number of Fetuses: Single Presentation: Vertex Intensity: Mod/Strong - Vaginal Exam/OB Amniotic Membrane Status: Ruptured Nitrazine Test: Positive Amniotic Fluid: Yes: Clear Presentation: Vertex/Position Station: -1 - Physical Exam Musculoskeletal: Yes: WNL Extremities: Yes: WNL Integumentary: Yes: WNL ...Motor Strength: WNL Psychiatric: Yes: Alert, Oriented - Labs Lab Results: CBC, BMP 05/09/19 10:51 05/09/19 10:51 Assessment/Plan PPROM Admit to L&D Analgesia as needed Ampicillin Anticipate delivery
[2019-05-09] MEDS ORDERED: OXYTOCIN 30 UNITS in 0.9% NS 30 UNIT/500 ML INFUS.BAG IVPB ONE (12:29)
[2019-05-09] MEDS ORDERED: OXYTOCIN 30 UNITS in 0.9% NS 30 UNIT/500 ML INFUS.BAG IVPB SCH (12:30)
[2019-05-09] MEDS ORDERED: LIDOCAINE HCL 1% PRESERVATIVE FREE - 30ML VIAL ONE (13:47)
[2019-05-09] MEDS ORDERED: BISACODYL 10 MG SUPP.RECT RC PRN (14:16)
[2019-05-09] MEDS ORDERED: BENZOCAINE 20% 57 GM BOTTLE TP PRN (14:16)
[2019-05-09] MEDS ORDERED: WITCH HAZEL 50% (TUCKS) 40 PAD/JAR PAD TP PRN (14:16)
[2019-05-09] MEDS ORDERED: METHYLERGONOVINE MALEATE 0.2 MG/1 ML AMP IM PRN (14:16)
[2019-05-09] MEDS ORDERED: BENZOCAINE 28 GM HEMORRHOIDAL OINTMENT TP PRN (14:16)
--- NOTE | 2019-05-09 14:20 | PN ---
Delivery - Delivery Vaginal Delivery: Spontaneous Episiotomy/Laceration: None EBL (cc): 250 Delivery, Single - Feeding Plan Initial Plan: Elected not to breastfeed exclusively throughout hospitalization Remarks - Remarks Remarks: Normal spontaneous vaginal delivery of a . Nose / Oropharynx suctioned @ perineum. Cord clamped and cut. Baby handed to sewing supervisor. Placenta expelled spontaneously intact. Mother in stable condition.
[2019-05-09] MEDS ORDERED: OXYTOCIN 20 UNITS in 0.9% NS 20 UNIT/1,000 ML INFUS.BAG IV SCH (14:30)
[2019-05-09] MEDS ORDERED: AMPICILLIN - 1 GM in SODIUM CHLORIDE 100 ML IVPB SCH (15:00)
[2019-05-09] MEDS: ACETAMINOPHEN 325 MG TABLET (FP) PO PRN ×2 (17:02→23:39)
[2019-05-09] MEDS: IBUPROFEN 600 MG TABLET (FP) PO PRN ×2 (17:03→23:39)
[2019-05-09] MEDS: FERROUS SO4 325 MG TABLET (FP) PO SCH (21:25)
[2019-05-10] MEDS: ACETAMINOPHEN 325 MG TABLET (FP) PO PRN ×3 (06:11→20:06)
[2019-05-10] MEDS: IBUPROFEN 600 MG TABLET (FP) PO PRN ×3 (06:11→20:07)
[2019-05-10 07:44] LABS: BASO % 0.3 % (0-2.0); EOS % 0.8 % (0-4.5); HEMATOCRIT 34.7 % (32.4-45.2); HEMOGLOBIN 11.3 GM/dL (10.7-15.3); LYMPH % 17.3 % (8-40); MCH 27.8 pg (25.7-33.7); MCHC 32.6 g/dl (32.0-36.0); MEAN CELL VOLUME 85.3 fl (80-96); MEAN PLT VOLUME 8.2 fl (7.5-11.1); MONO % 9.3 % (3.8-10.2); NEUT % 72.3 % (42.8-82.8); PLATELET COUNT 153 K/MM3 (134-434); RBC 4.07 M/mm3 (3.60-5.2); RDW 23.8 % (11.6-15.6); WHITE BLOOD COUNT 11.2 K/mm3 (4.0-10.0)
[2019-05-10] MEDS: FERROUS SO4 325 MG TABLET (FP) PO SCH ×2 (09:26→22:16)
[2019-05-10] MEDS: PRENATAL VITAMINS W/ FOLIC ACID TABLET (FP) PO SCH (09:26)
[2019-05-10] MEDS ORDERED: SENNOSIDES/DOCUSATE COMBO (SENNA PLUS) TABLET (UD) PO PRN (22:00)
[2019-05-11] MEDS: IBUPROFEN 600 MG TABLET (FP) PO PRN (06:09)
[2019-05-11] MEDS: ACETAMINOPHEN 325 MG TABLET (FP) PO PRN (06:09)
--- NOTE | 2019-05-11 06:44 | DS ---
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 Vital Signs: Vital Signs Temperature 97.7 F 05/10/19 22:00 Pulse Rate 76 05/10/19 22:00 Respiratory Rate 18 05/10/19 22:00 Blood Pressure 105/58 L 05/10/19 22:00 O2 Sat by Pulse Oximetry (%) Constitutional: Yes: Well Nourished, No Distress Gastrointestinal: Yes: WNL, Soft ....Post : Yes: Uterus firm, Uterus non-tender Integumentary: Yes: WNL Neurological: Yes: WNL, Alert, Oriented Labs: CBC, BMP 05/10/19 07:17 05/09/19 10:51 Delivery - Delivery Vaginal Delivery: Spontaneous Type of Anesthesia: None Episiotomy/Laceration: None EBL (cc): 250 Delivery, Single - Stages of Labor Date 1st Stage Initiatied: 05/09/19 Time 1st Stage Initiated: 10:00 Date 2nd Stage Initiated: 05/09/19 Time 2nd Stage Initiated: 13:50 Date of Delivery: 05/09/19 Time of Delivery: 14:03 Time Placenta Delivered: 14:06 Placenta: Yes: Spontaneous - Condition of Shipping Helper/[employer] Rep Present: Yes Name: Alexandr Perez Infant Gender: Male Weight: 6 lb 7 oz Position: Left, Right, OA Total Hours ROM (Hrs/Mins): 10H5M - 1 Minute Total Score: 9 5 Minutes Total Score: 9 - Feeding Plan Initial Plan: Elected not to breastfeed exclusively throughout hospitalization Discharge Summary Problems reviewed: Yes Reason For Visit: LABOR ADMISSION Current Active Problems premature rupture of membranes (PPROM) delivered, current hospitalization (Acute) Spontaneous vaginal delivery (Acute) Procedures: Principal: Normal vaginal delivery Condition: Good - Instructions Diet, Activity, Other Instructions: Regular diet No douching, no sexual intercourse x 6 weeks F/U with MD in 4-6 weeks Disposition: HOME - Home Medications Comprehensive Discharge Medication List: Ambulatory Orders Albuterol Sulfate Inhaler - 1 - 2 puff PO PRN PRN 09/21/17 Tablet 1 tab PO DAILY 05/09/19
[2019-05-11] MEDS: PRENATAL VITAMINS W/ FOLIC ACID TABLET (FP) PO SCH (10:23)
[2019-05-11] MEDS: FERROUS SO4 325 MG TABLET (FP) PO SCH (10:23)
[2019-05-11 12:10] VITALS: BP 96/61; PULSE 84; TEMP 97.4
== END 2019-05-11 11:20 | disposition home or self-care (01) | DRG 560 ==
LOC: JLDR 09:40 → J3W 16:15
PROVIDERS: ADMIT Obstetrics & Gynecology; ATTEND Obstetrics & Gynecology
PROC: 10E0XZZ Delivery of Products of Conception, External Approach (ICD-10-PCS; principal; 2019-05-09)
DX: O60.14X0 Preterm labor third trimester with preterm delivery third trimester, not applicable or unspecified (principal); Z3A.35 35 weeks gestation of pregnancy; O42.913 Preterm premature rupture of membranes, unspecified as to length of time between rupture and onset of labor, third trimester; Z37.0 Single live birth
CPT/HCPCS: 36415; 59409; 80048; 85025; 85610; 85730; 86593; 86850; 86900; 86901; 87389

== ENCOUNTER 2020-05-06 10:00 | Emergency (ER) | payer OTHER ==
[2020-05-06 10:06] VITALS: TEMP 97; BMI 26.6
--- OUTSIDE RECORDS SUMMARY | 2020-05-06 10:17 | XMS ---
:1995 Author Organization [facility] Care Team Providers Name Role Phone Orestes, Cr Unavailable Orestes, Cr Unavailable Orestes, Cr Unavailable Orestes, Cr Unavailable Orestes, Cr Unavailable Re-disclosure Warning The records that you are about to access may contain information from federally- assisted alcohol or drug abuse programs. If such information is present, then the following federally mandated warning applies: This information has been disclosed to you from records protected by federal confidentiality rules (42 CFR part 2). The federal rules prohibit you from making any further disclosure of this information unless further disclosure is expressly permitted by the written consent of the person to whom it pertains or as otherwise permitted by 42 CFR part 2. A general authorization for the release of medical or other information is NOT sufficient for this purpose. The Federal rules restrict any use of the information to criminally investigate or prosecute any alcohol or drug abuse patient.The records that you are about to access may contain highly sensitive health information, the redisclosure of which is protected by Article 27-F of the [place] State Public Health law. If you continue you may haveaccess to information: Regarding HIV / AIDS; Provided by facilities licensed or operated by the [facility] Office of Mental Health; or Provided by the [facility] Office for People With Developmental Disabilities. If such information is present, then the following [facility] mandated warning applies: This information has been disclosed to you from confidential records which are protected by state law. State law prohibits you from making any further disclosure of this information without the specific written consent of the person to whom it pertains, or as otherwise permitted by law. Any unauthorized further disclosure in violation of state law may result in a fine or [place] [facility] sentence or both. A general authorization for the release of medical or other information is NOT sufficient authorization for further disclosure. Encounters Encounter Providers Location Date Indications Data Source(s ) Attender: Cr 02/03/2020 [facility] ( [facility] 12:00:00 AM EDT Medical, PC) Office Attender: Cr Carlisle 02/03/2020 12:00:00 AM E DT [facility] ([facility], ) Office Medications Medication Brand Start Product Dose Route Administrative Pharmacy [facility] Indications Reaction Description Data Name Date Form Instructions Instructions Source(s) Amlodipine NORVAS 02/02/ TABLET 30 complet [place] [facility] (St 2.5 MG Oral C:2124 2019 ed [facility] Tablet 42 12:00: Medical, [Norvasc] 00 AM PC) NORVASC:212 EDT 542 Amlodipine NORVAS 02/02/ TABLET 30 complet [place] [facility] ([place] 2.5 MG Oral C:2124 2019 ed [facility] Tablet 42 12:00: Medical, [Norvasc] 00 AM PC) NORVASC:212 EDT 542 ferrous SLOW // TABLET, 30 complet SLOW FE Thomas JULIAN (St sulfate 160 FE:2018 EXTENDED ed Olga hn's MG Extended 095 12:00: RELEASE Med ical, Release 00 AM PC) Oral Tablet EST [Slow-Fe] SLOW [id number] Omeprazole PRILOS 11/25/ DELAYED 30 complet PRIL OSEC [facility] (St 40 MG EC:2018 RELEASE ed [facility]res[facility] Delayed 295 12:00: CAPSULE Medical , Release 00 AM PC) Oral EST Capsule [Prilosec] PRILOSEC: 1975 Omeprazole PRILOS /25/ DELAYED 30 complet PRIL OSEC [facility] (St 40 MG EC:2018 RELEASE ed [facility]res[facility] Delayed 295 12:00: CAPSULE Medical , Release 00 AM PC) Oral EST Capsule [Prilosec] PRILOSEC: 3295 ferrous SLOW 07/04/ TABLET, 30 complet SLOW FE Thomas JORDAN (St sulfate 160 FE:2018 EXTENDED ed Olga melissa's MG Extended 095 12:00: RELEASE Med ical, Release 00 AM PC) Oral Tablet EST [Slow-Fe] SLOW [id number] Insurance Providers Payer name Policy type Policy ID Covered Covered constitution party's Policy P belinda / Coverage constitution party ID relationship to [place] Inf ormation type burnette LETICIA [id number] SP [id number] HEALTH NON CAP LETICIA CARE [id number] JOSE A LETICIA CARE [id number] Dental [id number] S [id number] [employer] MKD Superior [id number] S [id number] Vision MKD Medicaid [id number] S [id number] Regular Clinic Visit [facility] [id number] S [id number] Options MKD MVP Medicaid [id number] S [id number] Managed Care Problems, Conditions, and Diagnoses Code Display Name Description Problem Type Effective Dates Data Source(s) R07.1 Chest pain on CHEST PAIN ON Problem 02/03/2020 [facility] ( St breathing BREATHING 12:00:00 AM EDT ELYSIA Campuzano) R07.1 Chest pain on CHEST PAIN ON Problem 02/03/2020 [facility] ( St breathing BREATHING 12:00:00 AM EDT ELYSIA Campuzano) R00.2 Palpitations PALPITATIONS Problem 01/26/2020 [facility] (St 12:00:00 AM EDELYSIA Cordova) R00.2 Palpitations PALPITATIONS Problem 01/26/2020 [facility] (St 12:00:00 AM EDELYSIA Cordova) D64.9 Anemia, ANEMIA, Problem 07/04/2019 [facility] (St unspecified UNSPECIFIED 12:00:00 AM [facility]) D64.9 Anemia, ANEMIA, Problem 07/04/2019 [facility] (St unspecified UNSPECIFIED 12:00:00 AM ELYSIA Forman) Surgeries/Procedures Procedure Description Date Indications Data Source(s) Documentation of current 02/03/2020 [facility] ([facility] medications (procedure) 12:00:00 AM EDELYSIA Zuñiga) Documentation of current 02/03/2020 [facility] ([facility] medications (procedure) 12:00:00 AM ELYSIA Ozuna) Documentation of current 02/03/2020 [facility] ([facility] medications (procedure) 12:00:00 AM EDELYSIA Zuñiga) OFFICE OUTPATIENT VISIT 02/03/2020 [facility] ([facility] 15 [facility]ES 12:00:[facility] Documentation of current 02/03/2020 [facility] ([facility] medications (procedure) 12:00:00 AM EDELYSIA Zuñiga) Documentation of current 02/03/2020 [facility] ([facility] medications (procedure) 12:00:00 AM ELYSIA Ozuna) OFFICE OUTPATIENT VISIT 02/03/2020 [facility] ([facility] 15 MINUTES 12:00:00 [facility]) PHYSICIAN TELEPHONE 01/26/2020 [facility] ( [facility] EVALUATION 5-10 MIN 12:00:00 AM EDT Medic susan, PC) PHYSICIAN TELEPHONE 01/26/2020 [facility] ( [facility] EVALUATION 5-10 MIN 12:00:00 AM EDT Medic susan PC) Documentation of current 07/04/2019 [facility] ([facility] medications (procedure) 12:00:00 AM ELYSIA Harmon) Documentation of current 07/04/2019 [facility] ([facility] medications (procedure) 12:00:00 AM ELYSIA Harmon) Documentation of current 07/04/2019 [facility] ([facility] medications (procedure) 12:00:00 AM ELYSIA Harmon) Documentation of current 07/04/2019 [facility] ([facility] medications (procedure) 12:00:00 AM ELYSIA Harmon) Documentation of current 07/04/2019 [facility] ([facility] medications (procedure) 12:00:00 AM ELYSIA Harmon) Documentation of current 07/04/2019 [facility] ([facility] medications (procedure) 12:00:00 AM ELYSIA Harmon) Documentation of current 07/04/2019 [facility] ([facility] medications (procedure) 12:00:00 AM EST [facility], ) OFFICE OUTPATIENT NEW 07/04/2019 [facility] ([facility] MINUTES 12:00:00 AM [facility], ) NONINVASIVE EAR/PULSE 07/04/2019 [facility] ([facility] OXIMETRY OVERNIGHT 12:00:00 AM EST Medica l, ) MONITOR URINE TEST 07/04/2019 [facility] ([facility] VISUAL COLOR CMPRSN METHS 12:00:00 AM [facility], ) Documentation of current 07/04/2019 [facility] ([facility] medications (procedure) 12:00:00 AM EST [facility], ) Documentation of current 07/04/2019 [facility] ([facility] medications (procedure) 12:00:00 AM EST [facility], ) Documentation of current 07/04/2019 [facility] ([facility] medications (procedure) 12:00:00 AM EST [facility], ) Documentation of current 07/04/2019 [facility] ([facility] medications (procedure) 12:00:00 AM EST [facility], ) Documentation of current 07/04/2019 [facility] ([facility] medications (procedure) 12:00:00 AM EST [facility], ) Documentation of current 07/04/2019 [facility] ([facility] medications (procedure) 12:00:00 AM EST [facility], ) Documentation of current 07/04/2019 [facility] ([facility] medications (procedure) 12:00:00 AM EST [facility], ) OFFICE OUTPATIENT NEW 07/04/2019 [facility] ([facility] MINUTES 12:00:00 AM [facility], ) NONINVASIVE EAR/PULSE 07/04/2019 [facility] ([facility] OXIMETRY OVERNIGHT 12:00:00 AM EST Medica l, ) MONITOR URINE TEST 07/04/2019 [facility] ([facility] VISUAL COLOR CMPRSN METHS 12:00:00 AM [facility], ) Results ID Date Data Source [id number] 07/04/2019 12:00:00 AM EST [facility] ([facility], ) Name Value Range Interpretation Description Data Sup porting Code Source(s) Document(s ) Vitamin D, 26.0 Below low normal [facility] (St 25-Hydroxy ng/mL [facility], ) ID Date Data Source [id number] 07/04/2019 12:00:00 AM EST [facility] (St [facility]) Name Value Range Interpretation Description Data Sup porting Code Source(s) Document(s ) Folate 16.2 Normal (applies to [facility] (St (Folic ng/mL non-numeric [facility] Acid), Serum results) [facility]) Vitamin B12 882 pg/mL Normal (applies to [facility] (S t non-numeric Andres's results) [facility]) ID Date Data Source [id number] 07/04/2019 12:00:00 AM EST [facility] (St [facility]) Name Value Range Interpretation Description Data Sup porting Code Source(s) Document(s ) Iron 335 ug/dL Normal (applies to [facility] (St Bind.Cap.(TIBC non-numeric Andres's ) results) [facility]) UIBC 222 ug/dL Normal (applies to [facility] (St non-numeric Andres's results) [facility]) Iron 34 % Normal (applies to [facility] (St saturation non-numeric Andres's [Mass results) [facility]) Fraction] in Serum or Plasma Iron 113 ug/dL Normal (applies to [facility] (St [Mass/volume] non-numeric Andres's in Serum or results) [facility]) Plasma ID Date Data Source [id number] 07/04/2019 12:00:00 AM EST [facility] ([facility]) Name Value Range Interpretation Description Data Sup porting Code Source(s) Document(s ) Leukocytes 7.6 Normal (applies [facility] (St [#/volume] in x10E3/uL to non-numeric Andres's Blood by results) [facility]) Automated count Erythrocytes 4.82 Normal (applies [facility] (St [#/volume] in x10E6/uL to non-numeric Andres's Blood by results) [facility]) Automated count Hemoglobin 14.4 Normal (applies [facility] (St [Mass/volume] in g/dL to non-numeric Andres's Blood results) [facility]) Hematocrit 42.7 % Normal (applies [facility] (St [Volume to non-numeric Andres's Fraction] of results) [facility]) Blood by Automated count MCH 29.9 pg Normal (applies [facility] (St to non-numeric Andres's results) [facility], ) MCV 89 fL Normal (applies [facility] (St to non-numeric Andres's results) [facility], ) MCHC 33.7 Normal (applies [facility] (St g/dL to non-numeric Andres's results) [facility], ) Platelets 231 Normal (applies [facility] (St [#/area] in x10E3/uL to non-numeric Andres's Blood by results) [facility], ) Microscopy high power field RDW 15.5 % Above high normal [facility] ([facility], ) Neutrophils [#] 58 % Normal (applies [facility] ( St in Body fluid by to non-numeric Andres's Manual count results) [facility], ) Monocytes 7 % Normal (applies [facility] (St [#/volume] in to non-numeric Andres's Cord blood results) [facility], ) Lymphs 33 % Normal (applies [facility] (St to non-numeric Andres's results) [facility], ) Neutrophils 4.4 Normal (applies [facility] (St (Absolute) x10E3/uL to non-numeric Andres's results) [facility], ) Eos 2 % Normal (applies [facility] (St to non-numeric Andres's results) [facility], ) Basos 0 % Normal (applies [facility] (St to non-numeric Andres's results) [facility], ) Monocytes(Absolu 0.5 Normal (applies [facility] (St te) x10E3/uL to non-numeric Andres's results) [facility], ) Lymphs 2.5 Normal (applies [facility] (St (Absolute) x10E3/uL to non-numeric Andres's results) [facility], ) Baso (Absolute) 0.0 Normal (applies [facility] ( St x10E3/uL to non-numeric Andres's results) [facility], ) Eos (Absolute) 0.1 Normal (applies [facility] (S t x10E3/uL to non-numeric Andres's results) [facility], ) Immature 0 % Normal (applies [facility] (St Granulocytes to non-numeric Andres's results) [facility], ) Immature Grans 0.0 Normal (applies [facility] (S t (Abs) x10E3/uL to non-numeric Andres's results) [facility], ) ID Date Data Source [id number] 07/04/2019 12:00:00 AM EST [facility] ([facility], ) Name Value Range Interpretation Code Description Data Jennifer rce(s) Supporting Document(s ) T4,Free(D 1.19 ng/dL Normal (applies to [facility] (St irect) non-numeric Andres's results) [facility], ) TSH 1.670 Normal (applies to [facility] (St uIU/mL non-numeric Andres's results) [facility]) ID Date Data Source [id number] 07/04/2019 12:00:00 AM EST [facility] ([facility], ) Name Value Range Interpretation Description Data Sup porting Code Source(s) Document(s ) Vitamin D, 26.0 Below low normal [facility] (St 25-Hydroxy ng/mL [facility]) ID Date Data Source [id number] 07/04/2019 12:00:00 AM EST [facility] ([facility], ) Name Value Range Interpretation Description Data Sup porting Code Source(s) Document(s ) Folate 16.2 Normal (applies to [facility] (St (Folic ng/mL non-numeric Andres's Acid), Serum results) [facility], ) Vitamin B12 882 pg/mL Normal (applies to [facility] (S t non-numeric Andres's results) [facility], ) ID Date Data Source [id number] 07/04/2019 12:00:00 AM EST [facility] ([facility], ) Name Value Range Interpretation Description Data Sup porting Code Source(s) Document(s ) UIBC 222 ug/dL Normal (applies to [facility] (St non-numeric Andres's results) [facility], ) Iron 335 ug/dL Normal (applies to [facility] (St Bind.Cap.(TIBC non-numeric Andres's ) results) [facility], ) Iron 34 % Normal (applies to [facility] (St saturation non-numeric Andres's [Mass results) [facility]) Fraction] in Serum or Plasma Iron 113 ug/dL Normal (applies to [facility] (St [Mass/volume] non-numeric Andres's in Serum or results) [facility], ) Plasma ID Date Data Source [id number] 07/04/2019 12:00:00 AM EST [facility] (St [facility]) Name Value Range Interpretation Description Data Sup porting Code Source(s) Document(s ) Leukocytes 7.6 Normal (applies [facility] (St [#/volume] in x10E3/uL to non-numeric Andres's Blood by results) [facility], ) Automated count Hemoglobin 14.4 Normal (applies [facility] (St [Mass/volume] in g/dL to non-numeric Andres's Blood results) [facility], ) Erythrocytes 4.82 Normal (applies [facility] (St [#/volume] in x10E6/uL to non-numeric Andres's Blood by results) [facility], ) Automated count Hematocrit 42.7 % Normal (applies [facility] (St [Volume to non-numeric Andres's Fraction] of results) [facility], ) Blood by Automated count MCV 89 fL Normal (applies [facility] (St to non-numeric Andres's results) [facility], ) MCHC 33.7 Normal (applies [facility] (St g/dL to non-numeric Andres's results) [facility], ) MCH 29.9 pg Normal (applies [facility] (St to non-numeric Andres's results) [facility], ) RDW 15.5 % Above high normal [facility] ([facility], ) Platelets 231 Normal (applies [facility] (St [#/area] in x10E3/uL to non-numeric Andres's Blood by results) [facility], ) Microscopy high power field Lymphs 33 % Normal (applies [facility] (St to non-numeric Andres's results) [facility], ) Neutrophils [#] 58 % Normal (applies [facility] ( St in Body fluid by to non-numeric Andres's Manual count results) [facility], ) Basos 0 % Normal (applies [facility] (St to non-numeric Andres's results) [facility], ) Monocytes 7 % Normal (applies [facility] (St [#/volume] in to non-numeric Andres's Cord blood results) [facility], ) Eos 2 % Normal (applies [facility] (St to non-numeric Andres's results) [facility], ) Monocytes(Absolu 0.5 Normal (applies [facility] (St te) x10E3/uL to non-numeric Andres's results) [facility], ) Neutrophils 4.4 Normal (applies [facility] (St (Absolute) x10E3/uL to non-numeric Andres's results) [facility], ) Lymphs 2.5 Normal (applies [facility] (St (Absolute) x10E3/uL to non-numeric Andres's results) Medical, ) Immature 0 % Normal (applies [facility] (St Granulocytes to non-numeric Andres's results) Medical, ) Baso (Absolute) 0.0 Normal (applies [facility] ( St x10E3/uL to non-numeric Andres's results) Medical, PC) Eos (Absolute) 0.1 Normal (applies [facility] (S t x10E3/uL to non-numeric Andres's results) Medical, PC) Immature Grans 0.0 Normal (applies [facility] (S t (Abs) x10E3/uL to non-numeric Andres's results) Medical, ) ID Date Data Source [id number] 07/04/2019 12:00:00 AM EST [facility] ([facility], ) Name Value Range Interpretation Code Description Data Jennifer rce(s) Supporting Document(s ) TSH 1.670 Normal (applies to [facility] (St uIU/mL non-numeric Andres's results) Medical, ) T4,Free(D 1.19 ng/dL Normal (applies to [facility] (St irect) non-numeric Andres's results) Medical, ) Procedure Social History Code Duration Value Status Description Data Source(s ) Smoking 02/20/2020 denies tobacco completed denies tobacco [facility] (St 12:00:00 AM denies alcohol denies alcohol [facility], EDT implantable implantable PC) contraception on contraception on LUE LUE Smoking 02/20/2020 Unknown if ever completed Unknown if ever [facility] EN (St 12:00:00 AM smoked smoked [facility], EDT PC) Smoking 02/03/2020 denies tobacco completed denies tobacco [facility] (St 12:00:00 AM denies alcohol denies alcohol [facility], EDT implantable implantable PC) contraception on contraception on LUE LUE Smoking 02/03/2020 Unknown if ever completed Unknown if ever MED[facility] EN (St 12:00:00 AM smoked smoked [facility] Medica [facility], EDT PC) Vital Signs ID Date Data Source UNK Name Value Range Interpretation Code Description Data Source(s) Heart rate 85 /min 85 /min [facility] ([facility] , ) Respiratory rate 14 /min 14 /min [facility] ( [facility]) Body mass index 28.2 kg/m2 28.2 kg/m2 [facility] (S t (BMI) [Ratio] [facility], ) Diastolic blood 60 mm[Hg] 60 mm[Hg] [facility] (S t pressure [facility]) Systolic blood 105 mm[Hg] 105 mm[Hg] [facility] ([facility]) Body weight 154 lb 154 lb [facility] ([facility]) Body height 62 in 62 in [facility] ([facility]) Heart rate 85 /min 85 /min [facility] ([facility]) Respiratory rate 14 /min 14 /min [facility] ( [facility]) Body mass index 28.2 kg/m2 28.2 kg/m2 [facility] (S t (BMI) [Ratio] [facility], ) Diastolic blood 60 mm[Hg] 60 mm[Hg] [facility] (S t pressure [facility]) Systolic blood 105 mm[Hg] 105 mm[Hg] [facility] ([facility]) Body weight 154 lb 154 lb [facility] ([facility]) Body height 62 in 62 in [facility] ([facility]) Heart rate 68 /min 68 /min [facility] ([facility]) Respiratory rate 16 /min 16 /min [facility] ( [facility]) Inhaled oxygen 100 % 100 % [facility] ([facility], ) Body mass index 25.9 kg/m2 25.9 kg/m2 [facility] (S t (BMI) [Ratio] [facility], ) Diastolic blood 75 mm[Hg] 75 mm[Hg] [facility] (S t pressure [facility]) Systolic blood 128 mm[Hg] 128 mm[Hg] [facility] ([facility]) Body weight 151 lb 151 lb [facility] ([facility]) Body height 64 in 64 in [facility] ([facility]) Heart rate 68 /min 68 /min [facility] ([facility]) Respiratory rate 16 /min 16 /min [facility] ( [facility]) Inhaled oxygen 100 % 100 % [facility] ([facility]) Body mass index 25.9 kg/m2 25.9 kg/m2 [facility] (S (BMI) [Ratio] [facility]) Diastolic blood 75 mm[Hg] 75 mm[Hg] [facility] (S t pressure [facility]) Systolic blood 128 mm[Hg] 128 mm[Hg] [facility] ([facility]) Body weight 151 lb 151 lb [facility] ([facility]) Body height 64 in 64 in [facility] ([facility])
--- NOTE | 2020-05-06 10:18 | PDOC ---
History of Present Illness <Constance Waller - Last Filed: 05/06/20 12:11> - History of Present Illness Initial Comments: 24 YOF h/o asthma and iron deficiency anemia while presents with lightheadedness, dizziness, CP, and SOB since this AM. Reports that she was walking in her apartment briefly between rooms and felt dizzy which concerned her. She decided to come to the ED for evaluation, on route she felt a sharp pain in her chest that self resolved soon after. Denies fever, chills, nausea, vomiting, diarrhea, recent sick contacts, or recent travel. Constitutional: No Weight Change, No Fever, No Chills, No Night Sweats, No Fatigue, No Malaise ENT/Mouth: No Hearing Changes, No Ear Pain, No Nasal Congestion, No Sinus Pain, No Hoarseness, No sore throat, No Rhinorrhea, No Swallowing Difficulty Eyes: No Eye Pain, No Swelling, No Redness, No Foreign Body, No Discharge, No Vision Changes Cardiovascular: + Chest Pain, + SOB, No PND, No Dyspnea on Exertion, No Orthopnea, No Claudication, No Edema, No Palpitations Respiratory: No Cough, No Sputum, No Wheezing, No Smoke Exposure, No Dyspnea Gastrointestinal: No Nausea, No Vomiting, No Diarrhea, No Constipation, No Pain, No Heartburn, No Anorexia, No Dysphagia, No Hematochezia, No Melena, No Flatulence, No Jaundice Genitourinary: No Dysmenorrhea, No DUB, No Dyspareunia, No Dysuria, No Urinary Frequency, No Hematuria, No Urinary Incontinence, No Urgency, No Flank Pain, No Urinary Flow Changes, No Hesitancy Musculoskeletal: No Arthralgias, No Myalgias, No Joint Swelling, No Joint Stiffness, No Back Pain, No Neck Pain, No Injury History Skin: No Skin Lesions, No Pruritis, No Hair Changes, No Breast/Skin Changes, No Nipple Discharge Neuro: No Weakness, No Numbness, No Paresthesias, No Loss of Consciousness, No Syncope, + Dizziness, No Headache, No Coordination Changes, No Recent Falls Psych: No Anxiety/Panic, No Depression, No Insomnia, No Personality Changes, No Delusions, No Rumination, No SI/HI/AH/VH, No Social Issues, No Memory Changes, No Violence/Abuse Hx., No Eating Concerns Heme/Lymph: No Bruising, No Bleeding, No Transfusions History, No Lymphadenopathy Endocrine: No Polyuria, No Polydipsia, No Temperature Intolerance <Sim Santiago - Last Filed: 05/06/20 12:33> - General Chief Complaint: Lightheaded Stated Complaint: CHEST PAIN/SHORTNESS OF BREATH Time Seen by Provider: 05/06/20 10:17 Past History <Constance Waller - Last Filed: 05/06/20 12:11> - Medical History Asthma: No Cancer: No Cardiac Disorders: No CVA: No COPD: No CHF: No Dementia: No Diabetes: No GI Disorders: No Disorders: No HTN: No Hypercholesterolemia: No Liver Disease: No Seizures: No Thyroid Disease: No - Surgical History Abdominal Surgery: No Appendectomy: Yes - Reproductive History Is Patient Now?: No (#): 1 Para: 0 Cervical CA: No Dysfunctional Uterine Bleeding: No Ectopic : No Endometrial CA: No Polycystic Ovaries: No Therapeutic (s) & number: No Tubal Ligation: No - Immunization History Immunization Up to Date: Yes - Psycho-Social/Smoking History Smoking Status: No Smoking History: Never smoked Have you smoked in the past 12 months: No Number of Cigarettes Smoked Daily: 0 Cigars Per Day: 0 - Substance Abuse Hx (Audit-C & DAST Scrn) How often the patient has a drink containing alcohol: Never Score: In Men: 4 or > Positive; In Women: 3 or > Positive: 0 Screen Result (Pos requires Nsg. Audit-10AR): Negative <Sim Santiago - Last Filed: 05/06/20 12:33> - Medical History Allergies/Adverse Reactions: Allergies Allergy/AdvReac Type Severity Reaction Status Date / Time No Known Allergies Allergy Verified 05/06/20 10:06 Home Medications: Ambulatory Orders Albuterol Sulfate Inhaler - 1 - 2 puff PO PRN PRN 09/21/17 Tablet 1 tab PO DAILY 05/09/19 *Physical Exam - Vital Signs Last Vital Signs Temp Pulse Resp BP Pulse Ox 97 F L 98 H 20 103/68 98 05/06/20 10:03 05/06/20 10:55 05/06/20 10:55 05/06/20 10:55 05/06/20 10:55 <Constance Waller - Last Filed: 05/06/20 12:11> - Vital Signs Last Vital Signs Temp Pulse Resp BP Pulse Ox 97 F L 115 H 18 108/64 99 05/06/20 10:03 05/06/20 10:03 05/06/20 10:03 05/06/20 10:03 05/06/20 10:03 - Physical Exam General Appearance: Yes: Appropriately Dressed, Apparent Distress HEENT: positive: EOMI, LEX, Normal ENT Inspection, Normal Voice, Symmetrical, TMs Normal, Pharynx Normal Neck: positive: Trachea midline, Normal Thyroid Respiratory/Chest: positive: Lungs Clear, Normal Breath Sounds Cardiovascular: positive: Regular Rhythm, Regular Rate, S1, S2 Gastrointestinal/Abdominal: positive: Normal Bowel Sounds, Flat, Soft Musculoskeletal: positive: Normal Inspection, CVA Tenderness Extremity: positive: Normal Capillary Refill, Normal Inspection Neurologic: positive: insulator apprentice II-XII NML intact, Fully Oriented, Alert, Normal Mood/Affect, Normal Response, Motor Strength 5/5 <Sim Santiago - Last Filed: 05/06/20 12:33> ED Treatment Course - LABORATORY CBC & Chemistry Diagram: 05/06/20 10:40 05/06/20 10:40 - ADDITIONAL ORDERS Additional order review: Laboratory Results 05/06/20 05/06/20 05/06/20 10:55 10:55 10:40 Sodium 138 Potassium 4.3 Chloride 107 Carbon Dioxide 24 Anion Gap 7 L BUN 13.4 Creatinine 0.6 Est GFR (CKD-EPI)AfAm 149.95 Est GFR (CKD-EPI)NonAf 129.38 Random Glucose 92 Calcium 9.0 Total Bilirubin 0.5 AST 28 ALT 36 Alkaline Phosphatase 79 Creatine Kinase 167 Total Protein 7.5 Albumin 3.8 Urine Color Yellow Urine Appearance Clear Urine pH 7.5 D Ur Specific [place] 1.016 Urine Protein Negative Urine Glucose (UA) Negative Urine Ketones Negative Urine Blood 2+ H Urine Nitrite Negative Urine Bilirubin Negative Urine Urobilinogen 1.0 Ur Leukocyte Esterase 1+ H Urine WBC (Auto) 24 Urine RBC (Auto) 12 Urine Casts (Auto) 0 U Epithel Cells (Auto) 10 Urine Bacteria (Auto) 217 Urine HCG, Qual Negative 05/06/20 10:40 RBC 4.68 MCV 89.9 MCHC 33.2 RDW 13.4 D MPV 8.3 Neutrophils % 58.1 Lymphocytes % 31.0 D Monocytes % 8.5 Eosinophils % 2.0 D Basophils % 0.4 - Medications Given in the ED: ED Medications Discontinued Medications Generic Name Dose Route Start Last Admin Trade Name Nicolette PRAntony Reason Stop Dose Admin Lactated Ringer's 1,000 ml 05/06/20 11:07 05/06/20 11:15 Lactated Ringers Solution IV 05/06/20 11:08 1,000 ml NOW ONE Administration <Constance Waller - Last Filed: 05/06/20 12:11> - LABORATORY CBC & Chemistry Diagram: 05/06/20 10:40 05/06/20 10:40 <Sim Santiago - Last Filed: 05/06/20 12:33> Medical Decision Making - Medical Decision Making 24 YOF w/ transient CP, SOB, dizziness - vitals wnl - exam unremarkable - ECG showed 1st degree heart block - will do CBC, CMP, troponin, ua 05/06/20 12:31 - labs wnl - UA shows 1+ leuk esterase, 1+ blood - patient is asymptomatic, tx not indicated - will dc patient to follow up <Sim Santiago - Last Filed: 05/06/20 12:33> Discharge - Discharge Information Problems reviewed: Yes - Admission No <Constance Waller - Last Filed: 05/06/20 12:11> - Discharge Information Problems reviewed: Yes - Admission No <Sim Santiago - Last Filed: 05/06/20 12:33> - Discharge Information Clinical Impression/Diagnosis: Nonspecific chest pain Condition: Stable Disposition: HOME - Follow up/Referral Referrals: Kika Leblanc MD [Primary Care Provider] - - Patient Discharge Instructions Patient Printed Discharge Instructions: DI for Atypical Chest Pain Additional Instructions: Discharge Instructions: You were seen in the emergency department for chest pain and lightheadedness. Your blood tests and EKG did not show any concerning findings, though you have an EKG abnormality called a 1st degree heart block. Please follow up with your regular doctor regarding this finding. Home Care and Follow Up: - You may use over the counter medications as needed for pain at home. 650- 1000mg acetaminophen (Tylenol) or 600mg ibuprofen (Motrin or Advil) can be used every 6-8 hours. If needed for continued pain, these medications may be alternated every 3-4 hours. For example, if you take ibuprofen at 9am, you may take acetaminophen at noon, ibuprofen at 3pm, etc. - Try using an ice pack for 20 minutes every hour or a heating pad for additional pain control. - Do not stop moving around. As much as you can tolerate, continue to do light exercise and stretching exercises. Increase your activity level as much as you can tolerate daily. If you find you always have symptoms on your left side, make sure you are not always holding your children with your left arm (move them to the right side). - Make sure you are drinking plenty of fluids and staying well hydrated. You should need to urinate (pee) every 3-4 hours at minimum. - If you have shortness of breath, try using your albuterol asthma inhaler or contact your regular doctor. - If your pain does not improve over the next week, see your regular doctor for follow up. - Seek immediate medical care if you have significant worsening of your symptoms, you have any episodes of fainting with loss of consciousness, you have difficulty breathing, you have chest pain with exercise, you are unable to climb a flight of stairs, you have any fall with head injury, or you have any other medical emergency. - Post Discharge Activity
[2020-05-06 10:58] VITALS: BP 103/68; PULSE 98
[2020-05-06] MEDS ORDERED: LACTATED RINGERS SOLUTION 1000 ML INFUS.BAG IV ONE (11:07)
[2020-05-06 11:12] LABS: EPI CELLS 10 /uL (0-25.1); HYALINE CASTS 0 /uL (0-3.1); PH,URINE 7.5 (5.0-8.0); URINE APPEARANCE CLEAR; URINE BACTERIA 217 /uL (0-1359); URINE BILIRUBIN NEGATIVE (NEGATIVE); URINE COLOR YELLOW; URINE GLUCOSE (UA) NEGATIVE (NEGATIVE); URINE KETONE NEGATIVE (NEGATIVE); URINE LEUK ESTERASE 1+ (NEGATIVE); URINE NITRITE NEGATIVE (NEGATIVE); URINE PROTEIN NEGATIVE (NEGATIVE); URINE RBC 12 /uL (0-23.9); URINE WBC 24 /uL (0-25.8)
[2020-05-06 11:19] LABS: BASO % 0.4 % (0-2.0); MCH 29.9 pg (25.7-33.7); MCHC 33.2 g/dl (32.0-36.0); MEAN CELL VOLUME 89.9 fl (80-96); MEAN PLT VOLUME 8.3 fl (7.5-11.1); MONO % 8.5 % (3.8-10.2); NEUT % 58.1 % (42.8-82.8); PLATELET COUNT 205 K/MM3 (134-434); RBC 4.68 M/mm3 (3.60-5.2); RDW 13.4 % (11.6-15.6); WHITE BLOOD COUNT 6.6 K/mm3 (4.0-10.0)
[2020-05-06 11:38] LABS: ALBUMIN 3.8 g/dl (3.4-5.0); ALK PHOS 79 U/L (45-117); ANION GAP 7 MMOL/L (8-16); BILIRUBIN,TOTAL 0.5 mg/dL (0.2-1); BLOOD UREA NITROGEN 13.4 mg/dL (7-18); CHLORIDE 107 mmol/L (98-107); CO2 24 mmol/L (21-32); CREATININE 0.6 mg/dL (0.55-1.3); GLUCOSE,RANDOM 92 mg/dL (74-106); POTASSIUM 4.3 mmol/L (3.5-5.1); SGOT/AST 28 U/L (15-37); SGPT/ALT 36 U/L (13-61); SODIUM 138 mmol/L (136-145); TOT PROT 7.5 g/dl (6.4-8.2)
--- NOTE | 2020-05-06 12:01 | PDOC ---
Documentation entered by Valeria Villa SCRIBE, acting as scribe for Terrance Brooke MD. Terrance Brooke MD: This documentation has been prepared by the mcibe, Valeria Villa SCRIBE, under my direction and personally reviewed by me in its entirety. I confirm that the documentation accurately reflects all work, treatment, procedures, and medical decision making performed by me. Attending Attestation - Resident Resident Name: Sim Santiago - ED Attending Attestation I have performed the following: I have examined & evaluated the patient, The case was reviewed & discussed with the resident, I agree w/resident's findings & plan, Exceptions are as noted - HPI HPI: 05/06/20 11:22 The patient is a 24-year-old female with a past medical history significant for asthma and Iron deficiency anemia (during ) who presents to the emergency department with chest pain, shortness of breath, and lightheadedness. The patient states this morning while walking, when she had an episode of lightheadedness last for several seconds before self resolving. The patient also reports 3 episodes of sharp, stabbing left-sided chest pain lasting less than 5 seconds and shortness of breath. The patient reports a history of asthma but denies compliance with albuterol secondary to racing heart side effects. The patient reports shes currently on nexplanon. LMP: currently menstruating, goes through 5-6 pads/day (baseline for the patient). - Physicial Exam PE: 05/06/20 12:02 "GENERAL: Awake, alert, and fully oriented, in no acute distress. HEAD: No signs of trauma EYES: PERRLA, EOMI, sclera anicteric, conjunctiva clear ENT: Auricles normal inspection, hearing grossly normal, nares patent, oropharynx clear without exudates. Moist mucosa NECK: Nontender, no stepoffs, Normal ROM, supple, no lymphadenopathy, JVD, or masses LUNGS: Breath sounds equal, clear to auscultation bilaterally. No wheezes, and no crackles HEART: Regular rate and rhythm, normal S1 and S2, no murmurs, rubs or gallops ABDOMEN: Soft, nontender, normoactive bowel sounds. No guarding, no rebound. No masses EXTREMITIES: Normal range of motion, no edema. No clubbing or cyanosis. No cords, erythema, or tenderness NEUROLOGICAL: Cranial nerves II through XII intact. 5/5 strength and sensation in all extremities, Normal speech, normal gait, normal cerebellar function SKIN: Warm, Dry, normal turgor, no rashes or lesions noted. - Medical Decision Making 05/06/20 12:02 24 F with lightheadedness and chest pain with SOB, now resolved. EKG with 1st deg AV block, otherwise normal. No evidence of arrhythmia or ischemia. PERC score 0. - Labs, trop - IV fluids Labs wnl Pt is well appearing, with normal vitals. Clinically stable for DC at this time. I discussed the physical exam findings, ancillary test results and final diagnoses with the patient. I answered all of the patient's questions. The patient was satisfied with the care received and felt comfortable with the discharge plan and treatment plan. The patient agrees to follow up with the primary care physician within 24-72 hours. Discharge - Discharge Information Problems reviewed: Yes Clinical Impression/Diagnosis: Nonspecific chest pain, SOB (shortness of breath), Lightheaded Condition: Stable Disposition: HOME - Follow up/Referral Referrals: Kika Leblanc MD [Primary Care Provider] - - Patient Discharge Instructions Patient Printed Discharge Instructions: DI for Atypical Chest Pain Additional Instructions: Discharge Instructions: You were seen in the emergency department for chest pain and lightheadedness. Your blood tests and EKG did not show any concerning findings, though you have an EKG abnormality called a 1st degree heart block. Please follow up with your regular doctor regarding this finding. Home Care and Follow Up: - You may use over the counter medications as needed for pain at home. 650- 1000mg acetaminophen (Tylenol) or 600mg ibuprofen (Motrin or Advil) can be used every 6-8 hours. If needed for continued pain, these medications may be alternated every 3-4 hours. For example, if you take ibuprofen at 9am, you may take acetaminophen at noon, ibuprofen at 3pm, etc. - Try using an ice pack for 20 minutes every hour or a heating pad for additional pain control. - Do not stop moving around. As much as you can tolerate, continue to do light exercise and stretching exercises. Increase your activity level as much as you can tolerate daily. If you find you always have symptoms on your left side, make sure you are not always holding your children with your left arm (move them to the right side). - Make sure you are drinking plenty of fluids and staying well hydrated. You should need to urinate (pee) every 3-4 hours at minimum. - If you have shortness of breath, try using your albuterol asthma inhaler or contact your regular doctor. - If your pain does not improve over the next week, see your regular doctor for follow up. - Seek immediate medical care if you have significant worsening of your symptoms, you have any episodes of fainting with loss of consciousness, you have difficulty breathing, you have chest pain with exercise, you are unable to climb a flight of stairs, you have any fall with head injury, or you have any other medical emergency. - Post Discharge Activity
--- NOTE | 2020-05-06 15:03 | EKG ---
Test Reason : Blood Pressure : / mmHG Vent. Rate : 078 BPM Atrial Rate : 078 BPM P-R Int : 314 ms QRS Dur : 072 ms QT Int : 372 ms P-R-T Axes : 065 074 060 degrees QTc Int : 424 ms SINUS RHYTHM WITH 1ST DEGREE A-V BLOCK LOW VOLTAGE QRS BORDERLINE ECG WHEN COMPARED WITH ECG OF 26-FEB-2006 00:23, PREVIOUS ECG IS PRESENT Confirmed by MD Nick, Uriah ([id number]) on 05/06/2020 3:02:46 PM Referred By: Confirmed By:Uriah Romero MD
== END 2020-05-06 13:00 | disposition home or self-care (01) ==
LOC: JER 10:00
DX: R07.9 Chest pain, unspecified (principal); R06.02 Shortness of breath
CPT/HCPCS: 36415; 80053; 81003; 82550; 82553; 84484; 84703; 85025; 87086; 93005; 93010; 99284-25

== ENCOUNTER 2024-06-19 07:02 | Emergency (ER) | payer OTHER ==
[2024-06-19 07:22] VITALS: BP 92/62; RESP 18; TEMP 98.2; BMI 27.1
[2024-06-19 07:55] VITALS: PULSE 85
== END 2024-06-19 10:29 | disposition home or self-care (01) ==
LOC: JER 07:02
DX: O99.891 Other specified diseases and conditions complicating pregnancy (principal); R05.9 Cough, unspecified; R06.02 Shortness of breath; O21.9 Vomiting of pregnancy, unspecified; O26.891 Other specified pregnancy related conditions, first trimester; R10.9 Unspecified abdominal pain; Z20.822 Contact with and (suspected) exposure to COVID-19; Z3A.00 Weeks of gestation of pregnancy not specified
CPT/HCPCS: 0241U-QW; 71046-TC-FY; 99284-25